=== PATIENT | female | born 1960 | race Caucasian/White ===

== ENCOUNTER 2017-07-24 10:42 | Emergency (ER) | payer MEDICAID ==
[~2017-07-24] VITALS: Ht 165.1 cm; Wt 71.9 kg
[2017-07-24 10:49] VITALS: BP 135/81
--- NOTE | 2017-07-24 10:53 | NUR ---
PT AMBULATES TO CHAIR B
--- NOTE | 2017-07-24 10:55 | NUR ---
56Y/F C/O WOUND ON RT KNEE SINCE YESTERDAY FROM [place], HERE FOR WOUND CHECK. LAST TENTNUS SHOT 7 YEARS AGO. HX: HTN, DM. ALLGERGIES: NKA PATIENT STATES PAIN OF 5/10 AT THIS TIME; VSS; PATIENT POSITIONED FOR COMFORT; ER MD MADE AWARE OF PT STATUS.
--- NOTE | 2017-07-24 11:12 | NUR ---
Patient being evaluated by physician at bedside.
--- NOTE | 2017-07-24 11:48 | NUR ---
Patient discharged with v/s stable. Written and verbal after care instructions given and explained. Patient alert, oriented and verbalized understanding of instructions. Ambulatory with steady gait. All questions addressed prior to discharge. ID band removed. Patient advised to follow up with PMD. Rx of BACTRIUM DS, MOTRIN given. Patient educated on indication of medication including possible reaction and side effects. Opportunity to ask questions provided and answered.
[2017-07-24 11:49] VITALS: BP 121/76
== END 2017-07-24 11:48 | disposition home or self-care (01) ==
LOC: MED 10:42
DX: L03.115 Cellulitis of right lower limb (principal); I10 Essential (primary) hypertension; E11.9 Type 2 diabetes mellitus without complications; E78.00 Pure hypercholesterolemia, unspecified
CPT/HCPCS: 90471; 90715; 99283

== ENCOUNTER 2018-04-19 02:13 | Inpatient (IN) | payer MEDICAID ==
[~2018-04-19] VITALS: Ht 165.1 cm; Wt 78.0 kg
[2018-04-19 02:24] VITALS: BP 150/80
[2018-04-19] MEDS ORDERED: GLIP5TER PO (02:24)
[2018-04-19] MEDS ORDERED: METF-350 PO (02:24)
[2018-04-19] MEDS ORDERED: LOSA25TA1 PO (02:24)
--- NOTE | 2018-04-19 02:35 | NUR ---
PT AMBULATED TO ER BED 10.
--- NOTE | 2018-04-19 02:37 | NUR ---
PT BIB SON FOR C/O PRODUCTIVE COUGH ALONG WITH THROAT PAIN. PT STATES COUGH STARTED 2 DAYS AGO. PT DENIES HAVING ANY OTHER SYMPTOMS. BED IN LOWEST POSITION. NO SIGNS OF DISTRESS NOTED.
--- NOTE | 2018-04-19 03:40 | NUR ---
PT RETURN FROM RADIOLOGY
[2018-04-19] MEDS ORDERED: NITROGLYCERIN 2% 1 GM PKT TP ONE (03:55)
[2018-04-19] MEDS ORDERED: ASPIRIN 325 MG TAB PO ONE (03:55)
--- NOTE | 2018-04-19 03:55 | NUR ---
IV STARTED AND EKG IN PROGRESS.
--- NOTE | 2018-04-19 04:15 | NUR ---
V/S WITHIN NORMAL LIMITS, ADMINISTERED MEDICATIONS.
[2018-04-19 04:27] LABS: BASOPHILS % (AUTO) 0.2 % (0.0-2.0); EOSINOPHILS # (AUTO) 0.2 K/uL (0-0.4); EOSINOPHILS % (AUTO) 1.6 % (0.0-4.0); HEMATOCRIT 43.4 % (36-48); HEMOGLOBIN 14.3 g/dL (12.0-16.0); LYMPHOCYTES # (AUTO) 2.9 K/uL (2.5-16.5); MEAN CORPUSCULAR HEMOGLOBIN 28 pg (27-31); MEAN CORPUSCULAR HGB CONC 33 g/dL (33-37); MEAN CORPUSCULAR VOLUME 86.2 fL (80-94); MONOCYTES # (AUTO) 0.8 K/uL (0.8-1.0); MONOCYTES % (AUTO) 7.5 % (1.7-9.3); NEUTROPHILS # (AUTO) 6.4 K/uL (1.8-7.7); NEUTROPHILS % (AUTO) 62.7 % (42.2-75.2); PLATELET COUNT (AUTO) 159 K/uL (140-450); RED BLOOD CELL COUNT(AUTO) 5.03 MIL/uL (4.20-5.40); RED CELL DISTRIBUTION WIDTH 13.4 % (11.6-13.7); WHITE BLOOD COUNT (AUTO) 10.2 K/uL (4.8-10.8)
[2018-04-19 04:37] LABS: ANION GAP 14.5 (8-16); CARBON DIOXIDE 28.4 mmol/L (21-32); CREATININE 0.7 mg/dL (0.6-1.3); POTASSIUM 3.9 mmol/L (3.5-5.1)
[2018-04-19 04:45] LABS: ALBUMIN 3.3 g/dL (3.4-5.0); TOTAL BILIRUBIN 0.3 mg/dL (0.0-1.0)
[2018-04-19 04:46] LABS: PROTHROMBIN TIME 9.4 secs (10.8-13.4)
[2018-04-19] MEDS ORDERED: NACL 0.9% 1,000 ML IV SCH (05:01)
[2018-04-19] MEDS ORDERED: LORazepam 2 MG/ML VIAL IM/IVP PRN (05:05)
[2018-04-19] MEDS ORDERED: NITROGLYCERIN 0.4 MG TAB SL PRN ×2 (05:05→12:15)
[2018-04-19] MEDS ORDERED: ZOLPIDEM 5 MG TAB PO PRN (05:05)
[2018-04-19] MEDS ORDERED: HYDROcodone/APAP 5/325 MG 1 TAB TAB PO PRN (05:05)
[2018-04-19] MEDS ORDERED: ONDANSETRON 4 MG/2 ML VIAL IM/IVP PRN (05:05)
[2018-04-19] MEDS ORDERED: ACETAMINOPHEN 325 MG TAB PO PRN (05:05)
[2018-04-19] MEDS ORDERED: MORPHINE SULFATE 4 MG/ML SYR IVP PRN (05:05)
[2018-04-19] MEDS ORDERED: DOCUSATE SODIUM 100 MG GELCAP PO PRN (05:05)
[2018-04-19] MEDS ORDERED: DEXTROSE 50% 50 ML SYR IVP PRN ×2 (05:40→12:10)
[2018-04-19 05:47] LABS: CHOL/HDL RATIO 4.2 (1-4.5); FREE T4 (FREE THYROXINE) 1.09 ng/dL (0.76-1.46); MAGNESIUM 1.9 mg/dL (1.8-2.4); PHOSPHORUS 3.7 mg/dL (2.5-4.9); THYROID STIMULATING HORMONE 2.48 uIU/mL (0.34-3.74)
--- NOTE | 2018-04-19 05:48 | NUR ---
REPORT GIVEN AND CARE TRANSFERED TO [facility] ROOM 110B. TRANSFERED VIA RNEY WITH VSS.
--- NOTE | 2018-04-19 05:55 | NUR ---
RECEIVED REPORT FROM LEAD CASTERPEPPER JIMENES FOR CONTINUITY OF CARE. PT IS A/OX4 ON 2L O2 VIA NASAL CANNULA. PT SPEAKS [place] ONLY, ABLE TO MAKE NEEDS KNOWN, UNABLE TO FOLLOW COMMANDS. PT IS BEDBOUND, THERE ARE RASHES ALL OVER BODY, BUT SKIN INTACT. PT HAS A 20G IV TO LEFT AC, AND A 22G TO RIGHT AC, ASYMPTOMATIC AND INTACT. VITAL SIGNS WITHIN NORMAL LIMITS. PT STABLE, DENIES PAIN, NO SIGNS OF DISTRESS NOTED AT THIS TIME. PT POSITIONED FOR COMFORT. BED IN LOWEST POSITION, BED ALARM ON. CALL LIGHT WITHIN REACH, WILL CONTINUE TO MONITOR.
--- NOTE | 2018-04-19 05:56 | NUR ---
RECEIVED REPORT FROM SHOE PATTERNMAKERPEPPER JIMENES FOR CONTINUITY OF CARE. PT IS A/OX4 ON 2L O2 VIA NASAL CANNULA. PT SPEAKS SLOVEN[place] ONLY, ABLE TO MAKE NEEDS KNOWN, ABLE TO FOLLOW COMMANDS. PT AMBULATES WITH STEADY GAIT AND SKIN IS INTACT. PT HAS A 22G IV TO LEFT AC, ASYMPTOMATIC AND INTACT. VITAL SIGNS WITHIN NORMAL LIMITS. PT STABLE, DENIES PAIN, NO SIGNS OF DISTRESS NOTED AT THIS TIME. PT POSITIONED FOR COMFORT. BED IN LOWEST POSITION, BED ALARM ON. CALL LIGHT WITHIN REACH, WILL CONTINUE TO MONITOR.
--- NOTE | 2018-04-19 07:19 | NUR ---
ENDORSED PT TO DAY SHIFT RN CHUYITA FOR CONTINUITY OF CARE. PT IN STABLE CONDITION.
[2018-04-19] MEDS: BLOOD GLUCOSE MONITORING 1 DEV DEV FS SCH ×4 (07:30→20:38)
[2018-04-19 08:00] VITALS: BP 124/72
--- NOTE | 2018-04-19 08:00 | NUR ---
PATIENT WAS AWAKE, ALERT. RESPIRATION EVEN, UNLABOR ON ROOM AIR. SKIN DRY AND WARM. IV PATENT AND INTACT. DENIED PAIN, SOB, N/V AT THIS TIME. IVF WAS HUNG. FLU SAMPLE WAS SWABBED. NO DISTRESS NOTED. PLAN OF CARE WAS DISCUSSED WITH PATIENT. BED AT LOW POSITION, SIDE RAILS UP. CALL LIGHT WITHIN REACH
--- NOTE | 2018-04-19 08:25 | NUR ---
PATIENT REMAINS NPO FOR ABDOMINAL US. SLIDING SCALE IS HELD. WILL CONTINUE TO MONITOR
[2018-04-19] MEDS: METOPROLOL 25 MG TAB PO SCH ×2 (08:59→20:40)
[2018-04-19] MEDS: LISINOPRIL 5 MG TAB PO SCH (09:17)
[2018-04-19] MEDS: ASPIRIN 81 MG TAB.CHEW PO SCH (09:18)
--- NOTE | 2018-04-19 10:00 | NUR ---
PATIENT WAS SLEEPING COMFORTABLY. RESPIRATION EVEN, UNLABOR ON ROOM AIR. NO DISTRESS NOTED AT THIS TIME
[2018-04-19] MEDS: INSULIN LISPRO SLIDING SCALE 100 UNITS/ML VIAL SUBQ PRN ×2 (11:57→20:46)
[2018-04-19 12:00] VITALS: BP 125/69
--- NOTE | 2018-04-19 12:00 | NUR ---
PATIENT WAS AWAKE, ALERT. RESPIRATION EVEN, UNLABOR ON ROOM AIR. PATIENT COMPLAINED OF PAIN AT IV SITE. IVF WAS STOPPED. IV WAS REMOVED, CATHETER INTACT, NO ACTIVE BLEEDING SEEN. NO DISTRESS NOTED AT THIS TIME
[2018-04-19] MEDS ORDERED: INSULIN LISPRO SLIDING SCALE 100 UNITS/ML VIAL SUBQ PRN (12:10)
--- NOTE | 2018-04-19 14:25 | NUR ---
PATIENT WAS SLEEPING COMFORTABLY. RESPIRATION EVEN, UNLABOR ON ROOM AIR. NO DISTRESS NOTED AT THIS TIME
--- NOTE | 2018-04-19 15:21 | NUR ---
CM NOTE CHART REVIEW DONE
--- NOTE | 2018-04-19 15:54 | NUR ---
PATIENT HAS BEEN SCREENED AND CATEGORIZED MODERATE NUTRITION RISK. PATIENT WILL BE SEEN WITHIN 3-5 DAYS OF ADMISSION. 04/21/18 04/23/[address]
[2018-04-19 16:00] VITALS: BP 118/76
--- NOTE | 2018-04-19 16:00 | NUR ---
PATIENT WAS SLEEPING COMFORTABLY, EASILY AROUSABLE BY NAME. RESPIRATION EVEN, UNLABOR ON ROOM AIR. DENIED PAIN, N/V. NO DISTRESS NOTED AT THIS TIME
[2018-04-19] MEDS ORDERED: BLOOD GLUCOSE MONITORING 1 DEV DEV FS SCH (16:30)
--- NOTE | 2018-04-19 18:23 | NUR ---
PATIENT WAS AWAKE, ALERT. RESPIRATION EVEN, UNLABOR ON ROOM AIR. NO DISTRESS NOTED. IV PATENT AND INTACT. FAMILY AT BEDSIDE. CALL LIGHT WITHIN REACH
--- NOTE | 2018-04-19 19:11 | NUR ---
ENDORSEMENT GIVEN TO BONDED STRAND OPERATOR NURSE. PATIENT IS STABLE AT THIS TIME
--- NOTE | 2018-04-19 19:12 | NUR ---
REPORT RECEIVED FROM AM NURSE AT BEDSIDE. PT IN STABLE CONDITION. AAOX4. INTRODUCED SELF TO PT AND FAMILY. BOARD UPDATED. NO COMPLAINTS OF CHEST PAIN. NO SOB. AFEBRILE. IV SITE L AC 22G SL PATENT AND INTACT. SKIN WARM, DRY, AND INTACT WITH NO OPEN WOUNDS. BED LOCKED IN LOW POSITION. CALL CRAWFORD WITHIN REACH. SAFETY PRECAUTIONS IN PLACE.
[2018-04-19 20:00] VITALS: BP 126/66
--- NOTE | 2018-04-19 20:40 | NUR ---
METFORMIN, GLIPIZIDE, LOPRESSOR, ZOCOR GIVEN PO. HEPARIN GIVEN SUBQ. BS 205. 4 UNITS OF HUMALOG GIVEN. PT TOLERATED WELL.
[2018-04-19] MEDS: metFORMIN 850 MG TAB PO SCH (20:41)
[2018-04-19] MEDS ORDERED: glipiZIDE ER 5 MG TABER PO SCH (21:00)
[2018-04-19] MEDS ORDERED: SIMVASTATIN 20 MG TAB PO SCH (21:00)
--- NOTE | 2018-04-19 23:30 | NUR ---
PT AWAKE WITH FAMILY AT BEDSIDE. VS STABLE. NO S/S OF DISTRESS NOTED. WILL CONTINUE TO MONITOR.
[2018-04-20] VITALS: BP 121/64
--- NOTE | 2018-04-20 01:30 | NUR ---
PT ATTEMPTING TO SLEEP. FAMILY AT BEDSIDE. NO S/S OF DISTRESS NOTED. WILL CONTINUE TO MONITOR.
--- NOTE | 2018-04-20 02:30 | NUR ---
PT TRANSFERRED TO BED 105B DUE TO NEW ADMIT ROOMMATE BEING EXTREMELY CONFUSED.
[2018-04-20 04:00] VITALS: BP 131/72
--- NOTE | 2018-04-20 04:00 | NUR ---
PT SLEEPING COMFORTABLY BUT AROUSEABLE. NO S/S OF DISTRESS NOTED. BREATHING EVEN, UNLABORED, AND WNL. ALL NEEDS MET AT THIS TIME.
[2018-04-20] MEDS ORDERED: guaiFENesin DM 200/20 MG-10 ML 10 ML UDC PO PRN (04:50)
--- NOTE | 2018-04-20 04:50 | NUR ---
PT COMPLAINS OF COUGH. MD NOTIFIED. NEW ORDERS PUT IN.
--- NOTE | 2018-04-20 05:06 | NUR ---
ROBITUSSIN DM GIVEN PO FOR COUGH. PT TOLERATED WELL.
[2018-04-20] MEDS: BLOOD GLUCOSE MONITORING 1 DEV DEV FS SCH (05:33)
--- NOTE | 2018-04-20 05:33 | NUR ---
BS 134. NO INSULIN COVERAGE NEEDED.
[2018-04-20 06:27] LABS: HEPATITIS A ANTIBODY IGM Negative (Negative); HEPATITIS B CORE AB TOTAL Negative (Negative); HEPATITIS B SURFACE ANTIBODY Non Reactive (.); HEPATITIS B SURFACE ANTIGEN Negative (Negative)
[2018-04-20 06:38] LABS: EOSINOPHILS # (AUTO) 0.2 K/uL (0-0.4); NEUTROPHILS # (AUTO) 4.8 K/uL (1.8-7.7); PLATELET COUNT (AUTO) 150 K/uL (140-450)
[2018-04-20 06:49] LABS: BASOPHILS % (AUTO) 0.3 % (0.0-2.0); EOSINOPHILS % (AUTO) 1.9 % (0.0-4.0); HEMATOCRIT 43.2 % (36-48); LYMPHOCYTES # (AUTO) 3.5 K/uL (2.5-16.5); LYMPHOCYTES % (AUTO) 38.1 % (20.5-51.1); MEAN CORPUSCULAR HEMOGLOBIN 28 pg (27-31); MEAN CORPUSCULAR HGB CONC 32 g/dL (33-37); MEAN CORPUSCULAR VOLUME 86.5 fL (80-94); MONOCYTES # (AUTO) 0.6 K/uL (0.8-1.0); MONOCYTES % (AUTO) 6.8 % (1.7-9.3); NEUTROPHILS % (AUTO) 52.9 % (42.2-75.2); RED CELL DISTRIBUTION WIDTH 13.8 % (11.6-13.7); WHITE BLOOD COUNT (AUTO) 9.1 K/uL (4.8-10.8)
--- NOTE | 2018-04-20 07:10 | NUR ---
REPORT GIVEN TO AM NURSE AT BEDSIDE. PT IN STABLE CONDITION.
--- NOTE | 2018-04-20 07:11 | NUR ---
SBAR REPORT RECEIVED AT PT BEDSIDE. PATIENT IS ALERT AND ORIENTED, SON AT BEDSIDE. NO ACUTE DISTRESS NOTED. ON ROOM AIR. IV SITE PATENT AND INTACT. DENIES CHEST PAIN. CALL LIGHT WITHIN REACH.
[2018-04-20 08:00] VITALS: BP 113/58
[2018-04-20] MEDS ORDERED: glipiZIDE 5 MG TAB PO SCH ×2 (08:07→16:30)
[2018-04-20] MEDS: metFORMIN 850 MG TAB PO SCH (08:18)
[2018-04-20] MEDS: LISINOPRIL 5 MG TAB PO SCH (08:18)
[2018-04-20] MEDS: METOPROLOL 25 MG TAB PO SCH (08:18)
[2018-04-20] MEDS: ASPIRIN 81 MG TAB.CHEW PO SCH (08:19)
--- NOTE | 2018-04-20 08:20 | NUR ---
PT SEEN BY DR. NARAYAN. PATIENT TO BE DISCHARGED HOME TODAY, FAMILY MADE AWARE OF CURRENT PLAN OF CARE, IN AGREEMENT. NO ACUTE DISTRESS NOTED.
[2018-04-20] MEDS ORDERED: MORPHINE SULFATE 4 MG/ML SYR IVP PRN (08:37)
[2018-04-20] MEDS ORDERED: METO25TA PO (08:52)
[2018-04-20] MEDS ORDERED: DEXT5SYR3 PO (08:59)
[2018-04-20 09:12] LABS: ANION GAP 13.8 (8-16); CARBON DIOXIDE 25.9 mmol/L (21-32); POTASSIUM 3.7 mmol/L (3.5-5.1)
[2018-04-20 09:13] LABS: CREATININE 0.6 mg/dL (0.6-1.3)
--- NOTE | 2018-04-20 09:50 | NUR ---
PATIENT IV DISCONTINUED, CANULA INTACT. DISCHARGE INSTRUCTIONS GIVEN TO PATIENT AND SON AT BEDSIDE, VERBALIZED UNDERSTANDING. F/U TEACHING GIVEN. PATIENT AMBULATORY. PT ESCORTED TO FRONT LOBBY, NO ACUTE DISTRESS NOTED. MEDICATION PRESCRIPTIONS SENT TO PHARMACY PER MD. PATIENT AWARE.
[2018-04-20] MEDS ORDERED: metFORMIN 500 MG TAB PO SCH (17:00)
[2018-04-21] MEDS ORDERED: metFORMIN 500 MG TAB PO SCH (08:00)
== END 2018-04-20 09:52 | disposition home or self-care (01) | DRG 203 ==
LOC: MED 02:13 → MTU 05:03
PROVIDERS: ADMIT General Practice; ATTEND General Practice
DX: M94.0 Chondrocostal junction syndrome [Tietze] (principal); E44.0 Moderate protein-calorie malnutrition; I11.9 Hypertensive heart disease without heart failure; K75.9 Inflammatory liver disease, unspecified; Z68.28 Body mass index [BMI] 28.0-28.9, adult; E78.1 Pure hyperglyceridemia; J20.9 Acute bronchitis, unspecified; E66.9 Obesity, unspecified; K76.0 Fatty (change of) liver, not elsewhere classified; R16.1 Splenomegaly, not elsewhere classified; E11.9 Type 2 diabetes mellitus without complications; E78.5 Hyperlipidemia, unspecified; Z79.84 Long term (current) use of oral hypoglycemic drugs; Z79.899 Other long term (current) drug therapy; Z90.710 Acquired absence of both cervix and uterus
CPT/HCPCS: 36415; 71046; 76700; 80048; 80053; 82150; 82948; 83036; 83690; 83735; 83880; 84100; 84439; 84443; 84484; 85025; 85610; 85730; 86704; 86706; 86708; 86709; 86803; 87081; 87340; 87804; 93005; 99291; J1644; J1815; J7030; Q0092

== ENCOUNTER 2019-02-19 19:16 | Emergency (ER) | payer MEDICAID ==
[~2019-02-19] VITALS: Ht 165.1 cm; Wt 70.3 kg
[~2019-02-19 19:16] MED LIST: DEXT5SYR3 PO; GLIP5TER PO; LOSA25TA1 PO; METF-350 PO; METO25TA PO
--- NOTE | 2019-02-19 19:24 | NUR ---
PT IN WHEELCHAIR TO ER BED 09
[2019-02-19 19:28] VITALS: BP 131/70
[2019-02-19] MEDS ORDERED: CYCLOBENZAPRINE 10 MG TAB PO ONE (19:30)
[2019-02-19] MEDS ORDERED: KETOROLAC 30 MG/ML VIAL IM ONE (19:30)
--- NOTE | 2019-02-19 19:37 | NUR ---
PATIENT PRESENTS TO ED WITH S/P FALL IN SHOWER 3 DAYS AGO, FALLING ON BUTTOCKS. REPORTS LOWER BACK/COCCYX PAIN RADIATING THROUGHOUT BACK AND BLE. DENIES HEAD TRAUMA OR LOC. PT DENIES TAKING BLOOD THINNERS. PT DENIES NUMBNESS OR TINGLING TO BLE AND BUE HX DM, HTN RX TRULICITY OTC IBUPROFEN 800MG PO WITHOUT RELIEF. DENIES N/V/D; SKIN IS PINK/WARM/DRY; AAOX4 ; LUNGS CLEAR BL; HR EVEN AND REGULAR; PT DENIES ANY FEVER, CP, SOB, OR COUGH AT THIS TIME; PATIENT STATES PAIN OF 8/10 AT THIS TIME; VSS; PATIENT POSITIONED FOR COMFORT; HOB ELEVATED; BEDRAILS UP X2; BED DOWN. ER MD MADE AWARE OF PT STATUS.
--- NOTE | 2019-02-19 19:45 | NUR ---
PT IN WHEELCHAIR ACCOMPANIED BY SENIOR LOGISTICS MANAGER TO RADIOLOGY
--- NOTE | 2019-02-19 19:58 | NUR ---
PT RETURNED FROM RADIOLOGY
--- NOTE | 2019-02-19 20:30 | NUR ---
NO CHANGES FROM PREVIOUS ASSESSMENT PT APPEARS TO BE IN NO DISTRESS.
--- NOTE | 2019-02-19 21:28 | NUR ---
Patient discharged with v/s stable. Written and verbal after care instructions given and explained. Patient alert, oriented and verbalized understanding of instructions. Ambulatory with steady gait. All questions addressed prior to discharge. ID band removed. Patient advised to follow up with PMD. Rx of IBUPROFIN AND FLEXRIL given. Patient educated on indication of medication including possible reaction and side effects. Opportunity to ask questions provided and answered.
[2019-02-19 21:29] VITALS: BP 126/70
== END 2019-02-19 21:28 | disposition home or self-care (01) ==
LOC: MED 19:16
DX: M54.9 Dorsalgia, unspecified (principal); M79.606 Pain in leg, unspecified; E11.9 Type 2 diabetes mellitus without complications; I10 Essential (primary) hypertension; E78.5 Hyperlipidemia, unspecified; Z86.73 Personal history of transient ischemic attack (TIA), and cerebral infarction without residual deficits; Z79.84 Long term (current) use of oral hypoglycemic drugs; Z79.899 Other long term (current) drug therapy; W18.2XXA Fall in (into) shower or empty bathtub, initial encounter; Y93.89 Activity, other specified; Y92.89 Other specified places as the place of occurrence of the external cause; Y99.8 Other external cause status
CPT/HCPCS: 72110; 72220; 96372; 99283; J1885